=== PATIENT | male | born 1965 | race Caucasian/White ===

== ENCOUNTER 2017-05-04 09:57 | Emergency (ER) | payer SELFPAY ==
[~2017-05-04] VITALS: Ht 167.6 cm; Wt 80.0 kg
[2017-05-04 10:15] VITALS: BP 110/70
[2017-05-04] MEDS ORDERED: ONDANSETRON 2MG/ML, 2ML IVPush ONE (10:30)
[2017-05-04] MEDS ORDERED: SODIUM CHLORIDE FLUSH 10ML SYR IVF ONE (10:30)
[2017-05-04] MEDS ORDERED: KETOROLAC 30 MG/1 ML IVPush ONE (10:30)
[2017-05-04] MEDS ORDERED: SODIUM CHLORIDE 0.9% 1,000ML IV ONE (10:30)
== END 2017-05-04 12:20 | disposition home or self-care (01) ==
LOC: ED 12:15
DX: A09 Infectious gastroenteritis and colitis, unspecified (principal); K62.89 Other specified diseases of anus and rectum
CPT/HCPCS: 74176; 99284